=== PATIENT | male | born 1950 | race Two or more races ===

== ENCOUNTER 2021-01-30 21:31 | Inpatient (IN) | payer MEDICARE, OTHER ==
[~2021-01-30] VITALS: Ht 162.6 cm; Wt 94.8 kg
[2021-01-30 21:40] VITALS: BP 143/81
[2021-01-30 22:00] VITALS: BP 143/81
--- NOTE | 2021-01-30 22:00 | NUR ---
DISPATCHER CHIEF COAL SLURRY NOTES SR-70 ON TELE MONITOR.
--- NOTE | 2021-01-30 22:00 | NUR ---
TRAY ROOM WORKERSEPTIC TECHNICIAN NOTES RECEIVED DIRECT ADMIT FROM [place] THIS 70 YO MALE,PER [place],ALERT,ORIENTED X4, WITH CHIEF COMPLAINTS OF ABDOMINAL PAIN AND BLACK STOOL PRIOR TO ADMISSION. ABLE TO AMBULATE WITH STEADY GAIT,ABLE TO PROVIDE HISTORY,PER FAMILY,HE GOT ALLERGY TO MORPHINE.NO SKIN ISSUES,SALINE LOCK LEFT AC INTACT AND PATENT.PROTONIX IV GIVEN IN [place],ABDOMINAL PAIN TOLERABLE UPON ARRIVAL IN THE UNIT.ORIENTED TO SET UP.BED ON LOWEST POSITION AND LOCKED.HOSPITALIST MADE AWARE OF THE ADMISSION,AWAITING TO PUT ORDERS.CALL LIGHT IN REACH,NEEDS ANTICIPATED.
--- NOTE | 2021-01-30 22:30 | NUR ---
MS RN NOTES MRSA SWAB SURVEILANCE DONE.
[2021-01-30] MEDS ORDERED: LINA5TAB PO (22:46)
[2021-01-30] MEDS ORDERED: METO50TA16 PO (22:46)
[2021-01-30] MEDS ORDERED: CHOL1CRY2 MC (22:46)
[2021-01-30] MEDS ORDERED: BENA40TA67 PO (22:46)
[2021-01-30] MEDS ORDERED: AMLO10TA4 PO (22:46)
[2021-01-30] MEDS ORDERED: OFLO5DRO LEFTEYE (22:46)
[2021-01-30] MEDS ORDERED: MAGN400T26 PO (22:46)
[2021-01-30] MEDS ORDERED: PRED5DRO4 LEFTEYE (22:46)
[2021-01-30] MEDS ORDERED: BACL10TA PO (22:46)
[2021-01-30] MEDS ORDERED: GEMF600T PO (22:46)
[2021-01-30] MEDS ORDERED: TOBR5DRO2 LEFTEYE (22:46)
[2021-01-30] MEDS ORDERED: TAMS-12 PO (22:46)
[2021-01-30] MEDS ORDERED: MELO15TA13 PO (22:46)
[2021-01-31] VITALS: BP 127/52
--- NOTE | 2021-01-31 00:30 | NUR ---
MS RN NOTES SEEN BY HOSPITALIST WITH ORDERS NOTED AND CARRIED OUT.
[2021-01-31] MEDS ORDERED: DEXTROSE 50%-WATER 50 ML DISP.SYRIN IV PRN (01:00)
[2021-01-31] MEDS ORDERED: ACETAMINOPHEN 325 MG TABLET PO PRN (01:00)
[2021-01-31] MEDS ORDERED: Z GUARD REMEDY 2 OZ OINT TP PRN (01:00)
[2021-01-31] MEDS ORDERED: ZOLPIDEM TARTRATE 5 MG TABLET PO PRN (01:00)
[2021-01-31] MEDS ORDERED: ONDANSETRON HCL/PF 4 MG/2 ML VIAL IVP PRN (01:00)
[2021-01-31] MEDS: IV NS 0.9% 1,000 ML IV PRN ×2 (01:05→22:30)
--- NOTE | 2021-01-31 01:05 | NUR ---
MS RN NOTES STARTED ON IVF NS AT 60ML/HR RATE,INFUSING VIA IV PUMP ON LEFT AC.
[2021-01-31] MEDS: PANTOPRAZOLE 40 MG VIAL IV SCH ×3 (01:23→20:43)
--- NOTE | 2021-01-31 01:23 | NUR ---
MS RN NOTES PROTONIX 40MG IV GIVEN ORDERED.
[2021-01-31] MEDS: BLOOD SUGAR DIAGNOSTIC 1 EACH STRIP IN SCH ×3 (05:22→17:40)
--- NOTE | 2021-01-31 06:00 | NUR ---
MS RN NOTES HAD BM,STOOL FOR OCCULT BLOOD COLLECTED AND SENT TO LAB
--- NOTE | 2021-01-31 06:32 | NUR ---
MS RN NOTES ACCU-CHECK BLOOD SUGAR CHECK 93,NO INSULIN COVERAGE.
--- NOTE | 2021-01-31 06:45 | NUR ---
MS RN NOTES FAIRLY RESTED AT NIGHT,NO EPISODE OF ABDOMINAL PAIN,STOOL FOR OB COLLECTED.IVF IN PROGRESS.CALL LIGHT IN REACH,NEEDS ATTENDED,ON CLEAR LIQUIDS..
--- NOTE | 2021-01-31 07:27 | NUR ---
MS RN OPENING NOTES RECEIVED PATIENT IN BED A/O X4. PATIENT IS BREATHING EVENLY AND UNLABORED ON ROOM AIR. NO DISTRESS NOTED. PATIENT IS ABLE TO MAKE NEEDS KNOWN. PATIENT IS CONTINENT USES URINAL AND CAN AMBULATE. SKIN IS INTACT. PATIENT HAS LAC # 20 PATENT AND INTACT RUNNING NS @ 60 ML/HR. SAFETY MEASURES ARE IN PLACE, BED LOW LOCKED AND CALL LIGHT WITHIN REACH. WILL CONTINUE TO MONITOR.
[2021-01-31] MEDS: AMLODIPINE BESYLATE 10 MG TABLET PO SCH (08:19)
[2021-01-31] MEDS: BENAZEPRIL HCL 20 MG TABLET PO SCH (08:20)
[2021-01-31] MEDS: TAMSULOSIN 0.4 MG CAP.SR.24H PO SCH (08:20)
[2021-01-31] MEDS: CHOLECALCIFEROL 1,000 UNIT TABLET (VIT D3) PO SCH (08:20)
[2021-01-31] MEDS: BACLOFEN (10 MG) 10 MG TABLET PO SCH (08:20)
[2021-01-31] MEDS: METOPROLOL TARTRATE 50 MG TABLET PO SCH (08:20)
[2021-01-31] MEDS ORDERED: KETO5DRO39 LEFTEYE (08:58)
[2021-01-31] MEDS ORDERED: prednisoLONE ACET 1% OPHT DROP 5 ML BOTTLE EACHEYE SCH (09:00)
[2021-01-31] MEDS ORDERED: TOBRAMYCIN/DEXAMETH OPHTH SUSP 5 ML BOTTLE LEFTEYE SCH ×2 (09:00)
[2021-01-31] MEDS ORDERED: OFLOXACIN 0.3% OPHTH 5 ML BOTTLE OP SCH (09:00)
[2021-01-31] MEDS ORDERED: VITA1TAB56 PO (09:00)
[2021-01-31] MEDS ORDERED: CHOL100062 PO (09:00)
[2021-01-31] MEDS: OFLOXACIN 0.3% OPHTH 5 ML BOTTLE LEFTEYE SCH ×3 (09:10→16:00)
[2021-01-31] MEDS: prednisoLONE ACET 1% OPHT DROP 5 ML BOTTLE LEFTEYE SCH ×3 (09:11→16:00)
[2021-01-31 09:16] VITALS: BP 128/61
[2021-01-31 09:35] LABS: OCCULT BLOOD STOOL POSITIVE (NEGATIVE)
[2021-01-31] MEDS: INSULIN REGULAR, HUMAN 100 UNIT/ML 3 ML VIAL SQ PRN ×2 (11:17→17:40)
[2021-01-31 12:43] LABS: BASOPHILS # (AUTO) 0.1 /CMM (0.0-0.2); BASOPHILS % (AUTO) 1.1 % (0.0-2.0); HEMATOCRIT 27 % (39-51); HEMOGLOBIN 9.2 g/dL (13.5-17.5); LYMPHOCYTES # (AUTO) 1.6 /CMM (0.8-4.8); LYMPHOCYTES % (AUTO) 19.8 % (20.0-44.0); MEAN CORPUSCULAR HGB CONC 34 g/dl (31.0-36.0); MEAN CORPUSCULAR VOLUME 95 fL (80-96); MONOCYTES # (AUTO) 0.6 /CMM (0.1-1.30); MONOCYTES % (AUTO) 7.8 % (2.0-12.0); NEUTROPHILS # (AUTO) 5.5 /CMM (1.8-8.9); NEUTROPHILS % (AUTO) 68.3 % (43.0-81.0); PLATELET COUNT (AUTO) 270 /CMM (150-450); RED BLOOD CELL COUNT(AUTO) 2.88 MIL/uL (4.5-6.0)
--- NOTE | 2021-01-31 12:55 | NUR ---
RN NOTES NOTIFIED MD OF POSITIVE FECAL OCCULT TEST WITH NNO AT THIS TIME. WILL CONTINUE TO MONITOR
[2021-01-31 13:17] LABS: CALCIUM, SERUM 7.7 mg/dL (8.5-10.1); CREATININE 1.5 mg/dL (0.6-1.3); MAGNESIUM 1.9 mg/dL (1.8-2.4); PHOSPHORUS 2.6 mg/dL (2.5-4.9); POTASSIUM 4.4 mmol/L (3.5-5.1)
[2021-01-31 16:11] VITALS: BP 120/62
--- NOTE | 2021-01-31 18:37 | NUR ---
RN CLOSING NOTE PATIENT IN BED A/O X4. PATIENT IS BREATHING EVENLY AND UNLABORED ON ROOM AIR. NO DISTRESS NOTED. PATIENT IS ABLE TO MAKE NEEDS KNOWN. PATIENT IS CONTINENT USES URINAL AND CAN AMBULATE. SKIN IS INTACT. PATIENT HAS LAC # 20 PATENT AND INTACT RUNNING NS @ 60 ML/HR. MD CALLED STATING PATIENT WILL HAVE EGD PROCEDURE TOMORROW AND SHOULD BE NPO AFTER MIDNIGHT. PATIENT NOTIFIED AND PATIENT AGREED. ALL MEDICATIONS WERE GIVEN ORDERED. PATIENTS NEEDS MET. SAFETY MEASURES ARE IN PLACE, BED LOW LOCKED AND CALL LIGHT WITHIN REACH. WILL ENDORSE TO ONCOMING SHIFT.
[2021-01-31 20:00] VITALS: BP 144/65
--- NOTE | 2021-01-31 20:12 | NUR ---
RN OPENING NOTES Patient is awake, A&Ox4. No c/o pain or discomfort. No signs of distress. Verbalizes understanding of being NPO after midnight for EGD procedure.
--- NOTE | 2021-02-01 | NUR ---
MS RN NOTES ACCU-CHECK BLOOD SUGAR CHECK 94,NO INSULIN COVERAGE. NPO STARTED FOR EGD BY DR CHAVES
[2021-02-01] MEDS: BLOOD SUGAR DIAGNOSTIC 1 EACH STRIP IN SCH ×4 (00:07→17:00)
--- NOTE | 2021-02-01 06:06 | NUR ---
MS RN CLOSING NOTES Patient is A&Ox4. VSS. No c/o pain or discomfort. No distress noted. IV patent and infusing NS at 60cc/hr. Patient removed dentures and provided with oral care in getting ready for EGD procedure. Checklist and consents completed. 0600 accucheck is 112, no coverage. Patient compliant with NPO status since midnight. No s/s of obvious bleeding overnight. Will endorse.
[2021-02-01 06:24] LABS: BASOPHILS # (AUTO) 0.1 /CMM (0.0-0.2); BASOPHILS % (AUTO) 1.1 % (0.0-2.0); HEMATOCRIT 26 % (39-51); HEMOGLOBIN 8.7 g/dL (13.5-17.5); LYMPHOCYTES # (AUTO) 1.7 /CMM (0.8-4.8); LYMPHOCYTES % (AUTO) 21.6 % (20.0-44.0); MEAN CORPUSCULAR HGB CONC 33 g/dl (31.0-36.0); MEAN CORPUSCULAR VOLUME 95 fL (80-96); MONOCYTES # (AUTO) 0.7 /CMM (0.1-1.30); MONOCYTES % (AUTO) 8.5 % (2.0-12.0); NEUTROPHILS # (AUTO) 5.3 /CMM (1.8-8.9); NEUTROPHILS % (AUTO) 65.8 % (43.0-81.0); PLATELET COUNT (AUTO) 247 /CMM (150-450); RED BLOOD CELL COUNT(AUTO) 2.79 MIL/uL (4.5-6.0)
--- NOTE | 2021-02-01 07:12 | NUR ---
MS RN OPENING NOTES RECEIVED PATIENT IN BED A/O X4. PATIENT IS BREATHING EVENLY AND UNLABORED ON ROOM AIR. NO DISTRESS NOTED. PATIENT IS ABLE TO MAKE NEEDS KNOWN. PATIENT HAS LAC # 20 PATENT AND INTACT RUNNING NS @ 60 ML/HR. PATIENT HAS BEEN NPO SINCE MIDNIGHT. CONSENTS AND CHECKLIST COMPLETE. SAFETY MEASURES ARE IN PLACE, BED LOW LOCKED AND CALL LIGHT WITHIN REACH. WILL CONTINUE TO MONITOR.
[2021-02-01 07:22] LABS: CALCIUM, SERUM 7.7 mg/dL (8.5-10.1); CREATININE 1.3 mg/dL (0.6-1.3); MAGNESIUM 1.8 mg/dL (1.8-2.4); POTASSIUM 4.3 mmol/L (3.5-5.1)
[2021-02-01 08:26] VITALS: BP 132/54
--- NOTE | 2021-02-01 08:34 | NUR ---
RN NOTES ALL MORNING ORAL MEDICATIONS HELD AND PATIENT IS NPO FOR EGD PROCEDURE TODAY. PATIENTS VITAL SIGNS STABLE BP 132/54 HR 54 RR 18 O2 SAT 98% ON ROOM AIR. WILL CONTINUE TO MONITOR
[2021-02-01] MEDS: prednisoLONE ACET 1% OPHT DROP 5 ML BOTTLE LEFTEYE SCH ×3 (08:37→16:49)
[2021-02-01] MEDS: OFLOXACIN 0.3% OPHTH 5 ML BOTTLE LEFTEYE SCH ×3 (08:37→16:49)
[2021-02-01] MEDS: PANTOPRAZOLE 40 MG VIAL IV SCH ×2 (08:44→20:55)
[2021-02-01] MEDS: TAMSULOSIN 0.4 MG CAP.SR.24H PO SCH (08:48)
[2021-02-01] MEDS: BACLOFEN (10 MG) 10 MG TABLET PO SCH (08:48)
[2021-02-01] MEDS: AMLODIPINE BESYLATE 10 MG TABLET PO SCH (08:49)
[2021-02-01] MEDS: METOPROLOL TARTRATE 50 MG TABLET PO SCH (08:49)
[2021-02-01] MEDS: BENAZEPRIL HCL 20 MG TABLET PO SCH (08:49)
[2021-02-01] MEDS: CHOLECALCIFEROL 1,000 UNIT TABLET (VIT D3) PO SCH (08:50)
--- NOTE | 2021-02-01 10:40 | NUR ---
RN NOTES SPOKE WITH DR ISABEL WHO IS COVERING FOR DR CHAVES. PER MD PATIENT WILL BE SEEN FOR EGD PROCEDURE TOMORROW @0500. WILL RESUME PREVIOUS DIET AND NPO AFTER MIDNIGHT. WILL CONTINUE TO MONITOR
[2021-02-01] MEDS: INSULIN REGULAR, HUMAN 100 UNIT/ML 3 ML VIAL SQ PRN ×2 (11:18→17:00)
[2021-02-01 13:31] LABS: BILIRUBIN,URINE NEGATIVE (NEGATIVE); COLOR,URINE YELLOW (YELLOW); LEUKOCYTE ESTERASE ,URINE NEGATIVE (NEGATIVE); NITRITE, URINE NEGATIVE (NEGATIVE); PH,URINE 6.5 (5.0-8.0); PROTEIN,URINE TRACE mg/dl (NEGATIVE); UGLUCOSE NEGATIVE (NEGATIVE); UROBILINOGEN,URINE 0.2 EU/dL (0.2)
[2021-02-01 13:34] LABS: CREATININE, URINE 82.3 MG/DL (30.0-125.0); URINE TOTAL PROTEIN 41.8 mg/dL (0-11.9)
[2021-02-01] MEDS: IV NS 0.9% 1,000 ML IV PRN (14:24)
[2021-02-01 14:31] LABS: BACTERIA,URINE 1+ /HPF (None Seen); RBC,URINE 0-2 /HPF (0-2); SQUAMOUS EPITHELIAL CELL,UR Few /HPF (None Seen); WBC,URINE 0-2 /HPF (0-3)
[2021-02-01 14:42] LABS: EOSINOPHIL,URINE None Seen
[2021-02-01 16:16] VITALS: BP 116/60
--- NOTE | 2021-02-01 18:38 | NUR ---
RN CLOSING NOTE PATIENT IN BED A/O X4. PATIENT IS BREATHING EVENLY AND UNLABORED ON ROOM AIR. NO DISTRESS NOTED. PATIENT IS ABLE TO MAKE NEEDS KNOWN. PATIENT IS CONTINENT USES URINAL AND CAN AMBULATE. SKIN IS INTACT. PATIENT HAS LAC # 20 PATENT AND INTACT RUNNING NS @ 60 ML/HR. CALLED STATING PATIENT WILL HAVE EGD PROCEDURE TOMORROW @ 0500 AM. SURGERY TEAM CALLED AND CONFIRMED. PATIENT SHOULD BE NPO AFTER MIDNIGHT. PATIENT NOTIFIED AND PATIENT AGREED. ALL MEDICATIONS WERE GIVEN ORDERED. PATIENTS NEEDS MET. SAFETY MEASURES ARE IN PLACE, BED LOW LOCKED AND CALL LIGHT WITHIN REACH. WILL ENDORSE TO ONCOMING SHIFT.
--- NOTE | 2021-02-01 19:35 | NUR ---
MSRN FULLY AWAKE, A/O X4, ON RA/ ABDOMEN DISTENDED, DENIES ANY DISCOMFORTS OF THIS TIME. VERY PLEASANT, AWARE OF PROCEDURE TOMORROW EGD . INSTRUCTED NPO POST MIDNIGHT APPEARS TO UNDERSTAND. TRANSLATED IN [facility].REMINDED T CALL STAFF FOR ANY ASSISTANCE OR DISCOMFORTS. CALL LIGHT WITHIN REACH. NO NEEDS OF THIS TIME.
[2021-02-01 20:00] VITALS: BP 118/69
[2021-02-01 21:52] VITALS: BP 118/69
--- NOTE | 2021-02-02 00:10 | NUR ---
MSRN EASILY AWAKENED WHEN CALLED. NO COMPLAINTS MADE. KEPT NPO
[2021-02-02] MEDS: BLOOD SUGAR DIAGNOSTIC 1 EACH STRIP IN SCH ×3 (00:20→12:27)
--- NOTE | 2021-02-02 05:00 | NUR ---
[facility] BLOOD SUGAR WAS 102. PATIENT TO OR VIA BED. IV ACCESS PATENT.
--- NOTE | 2021-02-02 05:15 | NUR ---
MSRN TO OR VIA BED.
--- NOTE | 2021-02-02 06:53 | NUR ---
MSRN BACK FROM OR. PENDING POST OP REPORT.
[2021-02-02 08:00] VITALS: BP 119/61
[2021-02-02] MEDS: AMLODIPINE BESYLATE 10 MG TABLET PO SCH (09:00)
[2021-02-02] MEDS: METOPROLOL TARTRATE 50 MG TABLET PO SCH (09:00)
[2021-02-02] MEDS: BENAZEPRIL HCL 20 MG TABLET PO SCH (09:00)
[2021-02-02] MEDS: OFLOXACIN 0.3% OPHTH 5 ML BOTTLE LEFTEYE SCH ×2 (09:43→13:03)
[2021-02-02] MEDS: CHOLECALCIFEROL 1,000 UNIT TABLET (VIT D3) PO SCH (09:43)
[2021-02-02] MEDS: prednisoLONE ACET 1% OPHT DROP 5 ML BOTTLE LEFTEYE SCH ×2 (09:43→13:03)
[2021-02-02] MEDS: PANTOPRAZOLE 40 MG VIAL IV SCH (09:43)
[2021-02-02] MEDS: BACLOFEN (10 MG) 10 MG TABLET PO SCH (09:43)
[2021-02-02] MEDS: TAMSULOSIN 0.4 MG CAP.SR.24H PO SCH (09:43)
[2021-02-02 11:35] LABS: BASOPHILS # (AUTO) 0.1 /CMM (0.0-0.2); BASOPHILS % (AUTO) 1.4 % (0.0-2.0); EOSINOPHILS % (AUTO) 2.4 % (0.0-6.0); HEMATOCRIT 27 % (39-51); HEMOGLOBIN 8.9 g/dL (13.5-17.5); LYMPHOCYTES # (AUTO) 1.5 /CMM (0.8-4.8); LYMPHOCYTES % (AUTO) 23.1 % (20.0-44.0); MEAN CORPUSCULAR HGB CONC 33 g/dl (31.0-36.0); MEAN CORPUSCULAR VOLUME 96 fL (80-96); MONOCYTES # (AUTO) 0.5 /CMM (0.1-1.30); MONOCYTES % (AUTO) 8.7 % (2.0-12.0); NEUTROPHILS # (AUTO) 4.1 /CMM (1.8-8.9); NEUTROPHILS % (AUTO) 64.4 % (43.0-81.0); PLATELET COUNT (AUTO) 221 /CMM (150-450); RED BLOOD CELL COUNT(AUTO) 2.82 MIL/uL (4.5-6.0); WHITE BLOOD COUNT (AUTO) 6.3 K/uL (4.3-11.0)
[2021-02-02 12:03] LABS: ALBUMIN 2.5 g/dL (3.4-5.0); BILIRUBIN,TOTAL 0.3 mg/dL (0.2-1.0); CALCIUM, SERUM 8.1 mg/dL (8.5-10.1); CREATININE 1.4 mg/dL (0.6-1.3); MAGNESIUM 1.6 mg/dL (1.8-2.4); PHOSPHORUS 2.7 mg/dL (2.5-4.9); POTASSIUM 4.1 mmol/L (3.5-5.1); TOTAL PROTEIN, SERUM 5.9 g/dL (6.4-8.2)
[2021-02-02] MEDS: INSULIN REGULAR, HUMAN 100 UNIT/ML 3 ML VIAL SQ PRN (12:29)
--- NOTE | 2021-02-02 12:33 | NUR ---
refused insulin coverage for 152 blood sugar.
[2021-02-02] MEDS ORDERED: PANT40TA2 PO (14:49)
[2021-02-02 16:00] VITALS: BP 123/58
[2021-02-02] MEDS ORDERED: MAGNESIUM OXIDE 400 MG TABLET PO ONE (16:00)
--- NOTE | 2021-02-02 16:30 | NUR ---
dtr. here given all dc instructions with good understanding. hep lock out. given mag oxide for low mg.all papers signed and transported to lobby via w/c accompanied by dtr. and horticultural specialty grower inside.
== END 2021-02-02 16:35 | disposition home or self-care (01) | DRG 377 ==
LOC: TELE 21:31 → MED 01-31 01:05
PROVIDERS: ADMIT Nurse Practitioner Acute Care; ATTEND Registered Nurse
PROC: 0DB68ZX Excision of Stomach, Via Natural or Artificial Opening Endoscopic, Diagnostic (ICD-10-PCS; principal; 2021-02-01)
DX: K25.4 Chronic or unspecified gastric ulcer with hemorrhage (principal); N17.0 Acute kidney failure with tubular necrosis; D62 Acute posthemorrhagic anemia; K26.4 Chronic or unspecified duodenal ulcer with hemorrhage; I12.9 Hypertensive chronic kidney disease with stage 1 through stage 4 chronic kidney disease, or unspecified chronic kidney disease; E11.22 Type 2 diabetes mellitus with diabetic chronic kidney disease; N18.9 Chronic kidney disease, unspecified; K74.60 Unspecified cirrhosis of liver; N40.1 Benign prostatic hyperplasia with lower urinary tract symptoms; F17.210 Nicotine dependence, cigarettes, uncomplicated; Z79.1 Long term (current) use of non-steroidal anti-inflammatories (NSAID); E66.01 Morbid (severe) obesity due to excess calories; Z68.35 Body mass index [BMI] 35.0-35.9, adult; K29.70 Gastritis, unspecified, without bleeding; K29.80 Duodenitis without bleeding; N40.0 Benign prostatic hyperplasia without lower urinary tract symptoms; Z79.84 Long term (current) use of oral hypoglycemic drugs
CPT/HCPCS: 36415; 71045-TC; 80048-TC; 80053-TC; 80061-TC; 81001; 82272-TC; 82570-TC; 82962-TC; 83735-TC; 84100-TC; 84155-TC; 84300-TC; 85025-TC; 85610-TC; 87081-TC; 88305-TC; 88313-TC; 88342; C9113; G0378; J1815; J2704; J3490; J7030

== ENCOUNTER 2021-08-01 13:48 | Emergency (ER) | payer MEDICARE, OTHER ==
[~2021-08-01] VITALS: Ht 162.6 cm; Wt 82.6 kg
[~2021-08-01 13:48] MED LIST: AMLO10TA4 PO; BACL10TA PO; BENA40TA67 PO; CHOL100062 PO; GEMF600T PO; KETO5DRO39 LEFTEYE; LINA5TAB PO; MAGN400T26 PO; MELO15TA13 PO; METO50TA16 PO; OFLO5DRO LEFTEYE; PANT40TA2 PO; PRED5DRO4 LEFTEYE; TAMS-12 PO; VITA1TAB56 PO
[2021-08-01 13:57] VITALS: BP 148/68
[2021-08-01] MEDS ORDERED: LIDOCAINE 1%-EPI 1:100,000 20 ML VIAL ONE (14:32)
[2021-08-01] MEDS: LIDOCAINE 1%-EPI 1:100,000 20 ML VIAL TP ONE (14:34)
[2021-08-01] MEDS ORDERED: TDAP [DIPH/PERTUSSIS/TET] 0.5 ML VIAL IM ONE (14:35)
[2021-08-01] MEDS: TDAP [DIPH/PERTUSSIS/TET] 0.5 ML VIAL IM ONE (14:38)
--- NOTE | 2021-08-01 14:39 | NUR ---
PT IS WHEELED TO CT SCAN VIA [facility].
--- NOTE | 2021-08-01 16:35 | NUR ---
SUTURING DONE BY
--- NOTE | 2021-08-01 16:40 | NUR ---
WOUND DRESSING DONE BY AUTOMATIC PRINT DEVELOPER.
--- NOTE | 2021-08-01 16:46 | NUR ---
Patient discharged to home in stable condition. Written and verbal after care instructions given. Patient verbalizes understanding of instruction.
== END 2021-08-01 16:47 | disposition home or self-care (01) ==
LOC: ER 13:52
DX: S01.112A Laceration without foreign body of left eyelid and periocular area, initial encounter (principal); I10 Essential (primary) hypertension; E78.5 Hyperlipidemia, unspecified; E11.9 Type 2 diabetes mellitus without complications; F17.200 Nicotine dependence, unspecified, uncomplicated; Z98.890 Other specified postprocedural states; Z88.6 Allergy status to analgesic agent; Z79.899 Other long term (current) drug therapy; W18.39XA Other fall on same level, initial encounter; Y93.89 Activity, other specified; Y92.89 Other specified places as the place of occurrence of the external cause; Y99.8 Other external cause status
CPT/HCPCS: 12013; 70450; 70486; 90471; 90715; 99284; J3490

== ENCOUNTER → 2023-09-19 | Emergency (ER) | payer MEDICARE, OTHER ==
[~2023-09-19] VITALS: Ht 162.6 cm; Wt 87.1 kg
[2023-09-19 14:46] VITALS: BP 143/49; TEMP 98; O2SAT 99
== END | disposition home or self-care (01) ==
LOC: ER 21:29
DX: I10 Essential (primary) hypertension (principal); Z88.8 Allergy status to other drugs, medicaments and biological substances; F17.200 Nicotine dependence, unspecified, uncomplicated; Z79.899 Other long term (current) drug therapy

== ENCOUNTER 2025-04-05 20:00 | Emergency (ER) | payer MEDICARE, OTHER ==
[~2025-04-05] VITALS: Ht 162.6 cm; Wt 91.2 kg
[2025-04-05 20:12] VITALS: TEMP 97.7
[2025-04-05] MEDS ORDERED: TDAP [DIPH/PERTUSSIS/TET] 0.5 ML VIAL IM ONE (20:26)
[2025-04-05] MEDS: TDAP [DIPH/PERTUSSIS/TET] 0.5 ML VIAL IM ONE (20:30)
[2025-04-05] MEDS: LIDOCAINE 1% INJ 50 ML MDV IJ ONE (22:11)
[2025-04-05 22:29] VITALS: BP 136/80; O2SAT 96
== END 2025-04-05 22:29 | disposition home or self-care (01) ==
LOC: ER 20:05
DX: S01.21XA Laceration without foreign body of nose, initial encounter (principal); I10 Essential (primary) hypertension; F17.200 Nicotine dependence, unspecified, uncomplicated; E03.9 Hypothyroidism, unspecified; Z79.1 Long term (current) use of non-steroidal anti-inflammatories (NSAID); Z79.84 Long term (current) use of oral hypoglycemic drugs; Z79.899 Other long term (current) drug therapy; Z88.5 Allergy status to narcotic agent; W01.0XXA Fall on same level from slipping, tripping and stumbling without subsequent striking against object, initial encounter; Y93.89 Activity, other specified; Y92.89 Other specified places as the place of occurrence of the external cause; Y99.8 Other external cause status
CPT/HCPCS: 70450-TC; 70486-TC; 90715